=== PATIENT | male | born 1985 | race Caucasian/White ===

== ENCOUNTER 2018-10-21 22:33 | Emergency (ER) | payer OTHER ==
[~2018-10-21] VITALS: Ht 177.8 cm; Wt 85.3 kg
[2018-10-21 22:43] VITALS: Ht 177.8 cm; Wt 85.3 kg
[2018-10-21 23:48] LABS: BASOPHIL % 0.3 % (0-2); PLATELET COUNT 320 x10^3mcL (130-400)
[2018-10-22 00:05] LABS: CALCIUM 9.4 mg/dL (8.5-10.1); CARBON DIOXIDE 25.1 mmol/L (21-32); CHLORIDE SERUM 102 mmol/L (98-107); CREATININE SERUM 0.9 mg/dL (0.7-1.3); GFR1 > 60 mL/min; GLUCOSE SERUM 107 mg/dL (74-106); POTASSIUM SERUM 3.8 mmol/L (3.5-5.1); SODIUM SERUM 140 mmol/L (136-145)
[2018-10-22 00:07] LABS: ALKALINE PHOSPHATASE 81 U/L (46-116); ALT/SGPT 37 U/L (16-63); AST/SGOT 29 U/L (15-37); BILIRUBIN TOTAL 1.8 mg/dL (0.20-1.00); TOTAL PROTEIN, SERUM 8.6 g/dL (6.4-8.2)
[2018-10-22 00:49] LABS: AMPHETAMINE QUAL UR POSITIVE (See below)
[2018-10-22] MEDS ORDERED: OLANZAPINE20 M1 PO (02:05)
[2018-10-22] MEDS ORDERED: BENZTROPINE MESY1 MG PO (02:06)
[2018-10-22 05:42] VITALS: BP 137/84
== END 2018-10-22 04:45 | disposition left against medical advice (07) ==
LOC: ED 22:33
PROVIDERS: Emergency Medicine
DX: F20.9 Schizophrenia, unspecified (principal); F22 Delusional disorders; R74.8 Abnormal levels of other serum enzymes; R31.9 Hematuria, unspecified
CPT/HCPCS: 36415; G0480; J7030